=== PATIENT | male | born 1970 | race Caucasian/White ===

== ENCOUNTER 2016-12-08 23:40 | Emergency (ER) | payer SELFPAY ==
[~2016-12-08] VITALS: Ht 177.8 cm; Wt 68.0 kg
[2016-12-08 23:42] VITALS: BP 103/57; PULSE 65; RESP 14; TEMP 97.7; O2SAT 97
[2016-12-08 23:54] VITALS: BP 109/59; PULSE 70; RESP 15; O2SAT 98
[2016-12-09] VITALS: BP 105/59; PULSE 70; RESP 15; O2SAT 99
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
[2016-12-09 00:31] LABS: AUTOMATED NEUTROPHIL # 3.1 TH/MM3 (1.8-7.7); BASOPHIL % 0.7 % (0.0-2.0); EOSINOPHIL # 0.1 TH/MM3 (0-0.4); EOSINOPHIL % 2.1 % (0.0-4.0); HEMATOCRIT 32.9 % (39.0-51.0); HEMO FLAGS DIFF FINAL; LYMPH % 32.9 % (9.0-44.0); LYMPHOCYTE # 1.8 TH/MM3 (1.0-4.8); MEAN CELL VOLUME 97.3 FL (80.0-100.0); MEAN CORPUSCULAR HEMOGLOBIN 33.7 PG (27.0-34.0); MEAN CORPUSCULAR HGB CONC 34.6 % (32.0-36.0); MONO % 7.6 % (0.0-8.0); NEUT % 56.7 % (16.0-70.0); PLATELET COUNT 184 TH/MM3 (150-450); RED BLOOD COUNT 3.38 MIL/MM3 (4.50-5.90); RED CELL DISTRIBUTION WIDTH 14.1 % (11.6-17.2); WHITE BLOOD COUNT 5.4 TH/MM3 (4.0-11.0)
[2016-12-09 00:38] LABS: APTT (PATIENT) 21.8 SEC (24.3-30.1); PROTHROMBIN TIME - PATIENT 10.7 SEC (9.8-11.6)
[2016-12-09 00:49] LABS: ALCOHOL 177 MG/DL (0-5); ALKALINE PHOSPHATASE 47 U/L (45-117); ALT (GPT) 20 U/L (12-78); ANION GAP 10 MEQ/L (5-15); AST (GOT) 12 U/L (15-37); BICARBONATE 23.4 MEQ/L (21.0-32.0); BLOOD UREA NITROGEN 16 MG/DL (7-18); CALCIUM-PROTEIN CORRECTED 7.9 MG/DL (8.5-10.1); CHLORIDE 111 MEQ/L (98-107); CREATINE KINASE 135 U/L (39-308); GLOMERULAR FILTRATION RATE 67 ML/MIN (>89); MAGNESIUM 2.1 MG/DL (1.5-2.5); POTASSIUM 3.4 MEQ/L (3.5-5.1); SODIUM (NA) 144 MEQ/L (136-145); TOTAL BILIRUBIN ADULT 0.2 MG/DL (0.2-1.0)
[2016-12-09 01:00] VITALS: BP 114/71; PULSE 66; RESP 14; O2SAT 100
[2016-12-09 01:07] LABS: CKMB 1.1 NG/ML (0.5-3.6)
--- NOTE | 2016-12-10 00:45 | EKG ---
Date Performed: 12/09/2016 Time Performed: 00:39:27 PTAGE: 46 years EKG: Sinus rhythm WITH SHORT MN INTERVAL POSSIBLE RIGHT VENTRICULAR CONDUCTION DELAY BORDERLINE ECG NO PREVIOUS TRACING DOCTOR: Giles Victor Interpretating Date/Time 12/10/2016 00:43:17
== END 2016-12-09 02:17 | disposition home or self-care (01) ==
LOC: NEPE 23:40
DX: F10.129 Alcohol abuse with intoxication, unspecified (principal); R55 Syncope and collapse; Z72.0 Tobacco use
CPT/HCPCS: 80053; 80307; 82550; 82552; 83735; 84484; 85025; 85610; 85730; 93005